=== PATIENT | male | born 1970 | race Caucasian/White ===

== ENCOUNTER 2024-08-18 10:54 | Emergency (ER) | payer SELFPAY ==
[~2024-08-18] VITALS: Ht 182.9 cm; Wt 75.0 kg
[2024-08-18 10:57] VITALS: O2SAT 97
[2024-08-18 11:22] VITALS: TEMP 36.7
[2024-08-18 11:47] LABS: BASOPHILS % 0.2 % (0.0-2.0); EOSINOPHILS % 0.2 % (0.0-5.0); HEMATOCRIT. 41.3 % (42.0-52.0); HEMOGLOBIN. 14.2 g/dL (14.0-18.0); LYMPHOCYTES % 22.8 % (20.0-50.0); MEAN CORPUSCULAR HGB CONC 34.4 g/dL (31.0-37.0); MEAN CORPUSCULAR VOLUME 95.9 fL (80.0-94.0); MONOCYTES % 3.6 % (2.0-8.0); NEUTROPHILS % 73.2 % (40.0-76.0); PLATELET 205 x1000/uL (130-400); RED BLOOD CELL COUNT 4.31 mill/uL (4.7-6.1); WHITE BLOOD COUNT 5.9 x1000/uL (4.5-11.0)
[2024-08-18 11:53] LABS: CARBON DIOXIDE 28 mEq/L (21-32); CHLORIDE 98 mEq/L (98-107); POTASSIUM 4.1 mEq/L (3.5-5.1); PROTHROMBIN TIME 10.9 sec (9.6-11.0); SODIUM 137 mEq/L (136-145)
[2024-08-18 11:54] LABS: CALCIUM 8.6 mg/dL (8.7-10.4)
[2024-08-18 11:58] LABS: CREATININE 0.9 mg/dL (0.6-1.3)
[2024-08-18 11:59] LABS: GLUCOSE 103 mg/dL (70-105); UREA NITROGEN BLOOD 7 mg/dL (9-23)
[2024-08-18 12:00] LABS: ALANINE AMINOTRANSFERASE 40 IU/L (10-49); ALBUMIN 4.3 g/dL (3.2-4.8); ASPARTATE AMINOTRANSFERASE 48 IU/L (<34)
[2024-08-18 12:01] LABS: BILIRUBIN DIRECT 0.1 mg/dL (<=3.0); BILIRUBIN TOTAL 0.4 mg/dL (0.1-1.0)
[2024-08-18 12:09] LABS: ETHANOL BLOOD 292 mg/dL (<10)
[2024-08-18 12:11] LABS: TROPONIN I HIGH SENSITIVITY < 4 ng/L (3.0-53)
[2024-08-18 13:56] VITALS: BP 129/82; PULSE 84; RESP 13; O2SAT 99
== END 2024-08-18 13:57 | disposition home or self-care (01) ==
LOC: ER 10:54
DX: R55 Syncope and collapse (principal); F43.10 Post-traumatic stress disorder, unspecified; Z88.2 Allergy status to sulfonamides; Z79.899 Other long term (current) drug therapy
CPT/HCPCS: 36415; 71045; 80048; 80076; 80320; 83880; 84484; 85025; 99285; G0480